=== PATIENT | female | born 1975 | race Caucasian/White ===

== ENCOUNTER 2024-02-27 01:47 | Outpatient (CLI) | payer MEDICAID, SELFPAY ==
[2024-02-27 08:49] LABS: Abs Immature Grans 0.02 10^3/uL (0.0-0.06); Absolute Basophil Count 0.04 10^3/uL (0.0-0.2); Absolute Eosinophil Count 0.06 10^3/uL (0.0-0.7); Absolute Lymphocyte Count 1.27 10^3/uL (1.2-3.4); Absolute Monocyte Count 0.43 10^3/uL (0.1-0.8); Basophils % 1.8 %; Eosinophils % 2.7 %; HCT 39.4 % (36.0-46.0); HGB 13.3 g/dL (11.2-15.7); Immature Grans % 0.9 %; Lymphocytes % 57.5 %; MCH 28.9 pg (27.0-33.0); MCHC 33.8 % (32.0-36.0); MCV 86 fL (80-95); MPV 9.6 fL (8.0-11.0); Monocytes % 19.5 %; Neutrophils % 17.6 %; Platelet Count 174 10^3/uL (130-400); RDW 13.2 % (11.7-14.6); RDW-SD 40.4 fL; WBC 2.21 10^3/uL (4.4-10.8)
[2024-02-27 09:28] LABS: ALT 32 U/L (14-59); AST 15 U/L (15-37); Albumin 3.8 g/dL (3.4-5.0); Alkaline Phosphatase 60 U/L (46-116); Anion Gap 8.8 mmol/L (3-11); BUN 6 mg/dL (7-18); CO2 29.2 mmol/L (21.0-32.0); CREATININE 0.8 mg/dL (0.55-1.02); Calcium 9.4 mg/dL (8.5-10.1); Chloride 106 mmol/L (98-107); Glucose 94 mg/dL (74-106); Potassium 3.4 mmol/L (3.5-5.1); Sodium 144 mmol/L (136-145); Total Protein 6.6 g/dL (6.4-8.2)
[2024-02-27 09:31] LABS: Diff Comment Diff Reviewed; RBC Morphology Normal
[2024-02-27 09:32] LABS: Absolute Neutrophil Count 0.39 10^3/uL (1.2-6.7)
[2024-02-27 21:07] LABS: CEA 1.3 ng/mL (See Note)
== END 2024-02-27 01:48 | disposition home or self-care (01) ==
LOC: LBO 01:47
PROVIDERS: Visit Provider Internal Medicine Hematology & Oncology
DX: C16.0 Malignant neoplasm of cardia (principal)
CPT/HCPCS: 36415; 80053; 82378; 85025

== ENCOUNTER 2024-03-06 00:03 | Outpatient (RCR) | payer MEDICAID, SELFPAY ==
[2024-03-05] MEDS: Normal Saline Flush 10 ML SYR IVP (08:28)
[2024-03-05 08:45] LABS: Abs Immature Grans 0.03 10^3/uL (0.0-0.06); Absolute Basophil Count 0.07 10^3/uL (0.0-0.2); Absolute Eosinophil Count 0.07 10^3/uL (0.0-0.7); Absolute Lymphocyte Count 1.53 10^3/uL (1.2-3.4); Absolute Monocyte Count 0.33 10^3/uL (0.1-0.8); Absolute Neutrophil Count 2.15 10^3/uL (1.2-6.7); Basophils % 1.7 %; Eosinophils % 1.7 %; HCT 37.6 % (36.0-46.0); HGB 12.5 g/dL (11.2-15.7); Immature Grans % 0.7 %; Lymphocytes % 36.6 %; MCH 29.1 pg (27.0-33.0); MCHC 33.2 % (32.0-36.0); MCV 88 fL (80-95); MPV 10.1 fL (8.0-11.0); Monocytes % 7.9 %; Neutrophils % 51.4 %; Platelet Count 219 10^3/uL (130-400); RBC 4.29 10^6/uL (3.93-5.22); RDW 13.8 % (11.7-14.6); RDW-SD 43.6 fL; WBC 4.18 10^3/uL (4.4-10.8)
[2024-03-05 09:02] LABS: ALT 26 U/L (14-59); AST 15 U/L (15-37); Albumin 3.6 g/dL (3.4-5.0); Alkaline Phosphatase 59 U/L (46-116); Anion Gap 6.7 mmol/L (3-11); BUN 6 mg/dL (7-18); Bilirubin, Total 0.33 mg/dL (0.2-1.0); CO2 27.3 mmol/L (21.0-32.0); CREATININE 0.7 mg/dL (0.55-1.02); Calcium 9.4 mg/dL (8.5-10.1); Chloride 107 mmol/L (98-107); Estimated GFR 107.28 (mL/min/1.73m2); Glucose 75 mg/dL (74-106); Potassium 3.8 mmol/L (3.5-5.1); Sodium 141 mmol/L (136-145); Total Protein 6.5 g/dL (6.4-8.2)
[2024-03-05 19:23] LABS: CEA 0.9 ng/mL (See Note)
[2024-03-06] MEDS: Normal Saline Flush 10 ML SYR IVP (16:00)
== END 2024-03-13 23:59 | disposition home or self-care (01) ==
LOC: INF 00:03
PROVIDERS: Visit Provider Internal Medicine Hematology & Oncology
DX: C16.0 Malignant neoplasm of cardia (principal); Z45.2 Encounter for adjustment and management of vascular access device
CPT/HCPCS: 36591; 80053; 96523; 82378; 85025

== ENCOUNTER 2024-04-03 16:17 | Outpatient (RCR) | payer MEDICAID, SELFPAY ==
[2024-03-19 08:19] LABS: Abs Immature Grans 1.04 10^3/uL (0.0-0.06); Absolute Basophil Count 0.11 10^3/uL (0.0-0.2); HCT 38.4 % (36.0-46.0); HGB 12.6 g/dL (11.2-15.7); MCH 28.7 pg (27.0-33.0); MCHC 32.8 % (32.0-36.0); MCV 88 fL (80-95); MPV 10.9 fL (8.0-11.0); Platelet Count 101 10^3/uL (130-400); RBC 4.39 10^6/uL (3.93-5.22); RDW 14.6 % (11.7-14.6); RDW-SD 45.8 fL
[2024-03-19 08:33] LABS: ALT 47 U/L (14-59); AST 24 U/L (15-37); Albumin 3.6 g/dL (3.4-5.0); Alkaline Phosphatase 106 U/L (46-116); Anion Gap 5.7 mmol/L (3-11); BUN 7 mg/dL (7-18); Bilirubin, Total 0.29 mg/dL (0.2-1.0); CO2 28.3 mmol/L (21.0-32.0); CREATININE 0.7 mg/dL (0.55-1.02); Calcium 9.5 mg/dL (8.5-10.1); Chloride 107 mmol/L (98-107); Estimated GFR 107.28 (mL/min/1.73m2); Glucose 89 mg/dL (74-106); Potassium 3.7 mmol/L (3.5-5.1); Sodium 141 mmol/L (136-145); Total Protein 6.6 g/dL (6.4-8.2)
[2024-03-19 08:40] LABS: Absolute Eosinophil Count 0.11 10^3/uL (0.0-0.7); Absolute Lymphocyte Count 1.31 10^3/uL (1.2-3.4); Absolute Monocyte Count 0.65 10^3/uL (0.1-0.8); Absolute Neutrophil Count 8.28 10^3/uL (1.2-6.7); Metamyelocytes % 3; Myelocytes % 1
[2024-03-19 08:41] LABS: Diff Comment Manual Differential; RBC Morphology Normal
[2024-03-19] MEDS: Normal Saline Flush 10 ML SYR IVP (13:10)
[2024-03-19 18:31] LABS: CEA 1.2 ng/mL (See Note)
[2024-03-20] MEDS: Normal Saline Flush 10 ML SYR IVP (13:28)
[2024-04-02 09:10] LABS: Abs Immature Grans 1.62 10^3/uL (0.0-0.06); HCT 37.2 % (36.0-46.0); HGB 12.5 g/dL (11.2-15.7); MCH 29.5 pg (27.0-33.0); MCHC 33.6 % (32.0-36.0); MCV 88 fL (80-95); MPV 11.3 fL (8.0-11.0); RBC 4.24 10^6/uL (3.93-5.22); RDW 16.5 % (11.7-14.6); RDW-SD 51.8 fL; WBC 14.43 10^3/uL (4.4-10.8)
[2024-04-02] MEDS: Normal Saline Flush 10 ML SYR IVP (09:16)
[2024-04-02 09:29] LABS: ALT 180 U/L (14-59); AST 90 U/L (15-37); Albumin 3.5 g/dL (3.4-5.0); Alkaline Phosphatase 137 U/L (46-116); Anion Gap 6.3 mmol/L (3-11); BUN 8 mg/dL (7-18); CO2 28.7 mmol/L (21.0-32.0); CREATININE 0.7 mg/dL (0.55-1.02); Calcium 9.2 mg/dL (8.5-10.1); Chloride 107 mmol/L (98-107); Estimated GFR 107.28 (mL/min/1.73m2); Glucose 90 mg/dL (74-106); Sodium 142 mmol/L (136-145); Total Protein 6.6 g/dL (6.4-8.2)
[2024-04-02 09:44] LABS: Platelet Count 99 10^3/uL (130-400)
[2024-04-02 09:45] LABS: Absolute Basophil Count 0.29 10^3/uL (0.0-0.2); Absolute Eosinophil Count 0.14 10^3/uL (0.0-0.7); Absolute Lymphocyte Count 1.73 10^3/uL (1.2-3.4); Absolute Monocyte Count 1.01 10^3/uL (0.1-0.8); Absolute Neutrophil Count 10.97 10^3/uL (1.2-6.7); Bands % 7 %; Diff Comment Manual Differential; Metamyelocytes % 2; RBC Morphology Normal
[2024-04-02 18:22] LABS: CEA 1.4 ng/mL (See Note)
== END 2024-04-12 23:59 | disposition home or self-care (01) ==
LOC: INF 16:17
PROVIDERS: Visit Provider Internal Medicine Hematology & Oncology
DX: C16.0 Malignant neoplasm of cardia (principal)
CPT/HCPCS: 36591; 80053; 82378; 85025

== ENCOUNTER 2024-04-23 01:30 | Outpatient (RCR) | payer MEDICAID, SELFPAY ==
[2024-04-23 09:20] LABS: Abs Immature Grans 0.26 10^3/uL (0.0-0.06); Absolute Basophil Count 0.06 10^3/uL (0.0-0.2); Absolute Eosinophil Count 0.01 10^3/uL (0.0-0.7); Absolute Lymphocyte Count 1.67 10^3/uL (1.2-3.4); Absolute Monocyte Count 0.39 10^3/uL (0.1-0.8); Absolute Neutrophil Count 4.78 10^3/uL (1.2-6.7); Basophils % 0.8 %; Eosinophils % 0.1 %; HCT 37.1 % (36.0-46.0); HGB 11.7 g/dL (11.2-15.7); Immature Grans % 3.6 %; Lymphocytes % 23.3 %; MCH 29.6 pg (27.0-33.0); MCHC 31.5 % (32.0-36.0); MCV 94 fL (80-95); Monocytes % 5.4 %; Neutrophils % 66.8 %; Platelet Count 151 10^3/uL (130-400); RBC 3.95 10^6/uL (3.93-5.22); RDW 16.9 % (11.7-14.6); RDW-SD 58.4 fL; WBC 7.17 10^3/uL (4.4-10.8)
[2024-04-23] MEDS: Normal Saline Flush 10 ML SYR IVP (09:27)
[2024-04-23 09:36] LABS: ALT 103 U/L (14-59); AST 49 U/L (15-37); Albumin 3.3 g/dL (3.4-5.0); Alkaline Phosphatase 95 U/L (46-116); Anion Gap 7.5 mmol/L (3-11); BUN 12 mg/dL (7-18); Bilirubin, Total 0.34 mg/dL (0.2-1.0); CO2 26.5 mmol/L (21.0-32.0); CREATININE 0.7 mg/dL (0.55-1.02); Calcium 9.1 mg/dL (8.5-10.1); Chloride 111 mmol/L (98-107); Estimated GFR 107.28 (mL/min/1.73m2); Glucose 81 mg/dL (74-106); Sodium 145 mmol/L (136-145); Total Protein 6.3 g/dL (6.4-8.2)
[2024-04-23 18:14] LABS: CEA 0.6 ng/mL (See Note)
== END 2024-05-13 23:59 | disposition home or self-care (01) ==
LOC: INF 01:30
PROVIDERS: Visit Provider Internal Medicine Hematology & Oncology
DX: C16.0 Malignant neoplasm of cardia (principal); Z45.2 Encounter for adjustment and management of vascular access device
CPT/HCPCS: 36591; 80053; 82378; 85025

== ENCOUNTER 2024-07-08 00:19 | Outpatient (RCR) | payer OTHER, SELFPAY ==
[2024-07-08] MEDS: Normal Saline Flush 10 ML SYR IVP (09:36)
[2024-07-08 10:05] LABS: Abs Immature Grans 0.02 10^3/uL (0.0-0.06); Absolute Basophil Count 0.03 10^3/uL (0.0-0.2); Absolute Lymphocyte Count 1.33 10^3/uL (1.2-3.4); Absolute Monocyte Count 0.31 10^3/uL (0.1-0.8); Absolute Neutrophil Count 5.06 10^3/uL (1.2-6.7); Basophils % 0.4 %; Eosinophils % 1.5 %; HCT 38.9 % (36.0-46.0); HGB 12.6 g/dL (11.2-15.7); Immature Grans % 0.3 %; Lymphocytes % 19.4 %; MCH 28.3 pg (27.0-33.0); MCHC 32.4 % (32.0-36.0); MCV 87 fL (80-95); MPV 10.6 fL (8.0-11.0); Monocytes % 4.5 %; Neutrophils % 73.9 %; Platelet Count 195 10^3/uL (130-400); RBC 4.45 10^6/uL (3.93-5.22); RDW 13.2 % (11.7-14.6); RDW-SD 42.6 fL; WBC 6.85 10^3/uL (4.4-10.8)
[2024-07-08 10:28] LABS: ALT 31 U/L (14-59); AST 18 U/L (15-37); Albumin 3.5 g/dL (3.4-5.0); Alkaline Phosphatase 89 U/L (46-116); Anion Gap 10.8 mmol/L (3-11); BUN 11 mg/dL (7-18); Bilirubin, Total 0.39 mg/dL (0.2-1.0); CO2 26.2 mmol/L (21.0-32.0); CREATININE 0.5 mg/dL (0.55-1.02); Calcium 9.5 mg/dL (8.5-10.1); Chloride 107 mmol/L (98-107); Estimated GFR 115.62 (mL/min/1.73m2); Glucose 94 mg/dL (74-106); Potassium 3.8 mmol/L (3.5-5.1); Sodium 144 mmol/L (136-145); Total Protein 6.7 g/dL (6.4-8.2)
[2024-07-08 18:24] LABS: CEA 0.8 ng/mL (See Note)
== END 2024-07-13 23:59 | disposition home or self-care (01) ==
LOC: INF 00:19
PROVIDERS: Visit Provider Internal Medicine Hematology & Oncology
DX: C16.0 Malignant neoplasm of cardia (principal); Z45.2 Encounter for adjustment and management of vascular access device
CPT/HCPCS: 36591; 80053; 82378; 85025

== ENCOUNTER 2024-08-05 03:37 | Outpatient (RCR) | payer OTHER, SELFPAY ==
[2024-07-22] MEDS: Normal Saline Flush 10 ML SYR IVP (08:04)
[2024-07-22 08:26] LABS: Abs Immature Grans 0.02 10^3/uL (0.0-0.06); Absolute Basophil Count 0.02 10^3/uL (0.0-0.2); Absolute Eosinophil Count 0.01 10^3/uL (0.0-0.7); Absolute Lymphocyte Count 0.79 10^3/uL (1.2-3.4); Absolute Monocyte Count 0.34 10^3/uL (0.1-0.8); Absolute Neutrophil Count 5.78 10^3/uL (1.2-6.7); Basophils % 0.3 %; Eosinophils % 0.1 %; HCT 37.2 % (36.0-46.0); HGB 12.1 g/dL (11.2-15.7); Immature Grans % 0.3 %; Lymphocytes % 11.4 %; MCH 27.8 pg (27.0-33.0); MCHC 32.5 % (32.0-36.0); MCV 86 fL (80-95); MPV 10.6 fL (8.0-11.0); Monocytes % 4.9 %; Platelet Count 201 10^3/uL (130-400); RBC 4.35 10^6/uL (3.93-5.22); RDW 13.8 % (11.7-14.6); RDW-SD 43.1 fL; WBC 6.96 10^3/uL (4.4-10.8)
[2024-07-22 08:43] LABS: ALT 25 U/L (14-59); AST 14 U/L (15-37); Alkaline Phosphatase 88 U/L (46-116); BUN 9 mg/dL (7-18); Bilirubin, Total 0.86 mg/dL (0.2-1.0); CREATININE 0.6 mg/dL (0.55-1.02); Calcium 9.6 mg/dL (8.5-10.1); Chloride 104 mmol/L (98-107); Estimated GFR 110.65 (mL/min/1.73m2); Glucose 113 mg/dL (74-106); Potassium 3.7 mmol/L (3.5-5.1); Sodium 140 mmol/L (136-145); Total Protein 6.9 g/dL (6.4-8.2)
[2024-08-05] MEDS: Normal Saline Flush 10 ML SYR IVP (08:20)
[2024-08-05 08:45] LABS: Absolute Lymphocyte Count 1.54 10^3/uL (1.2-3.4); Absolute Monocyte Count 0.53 10^3/uL (0.1-0.8); Basophils % 0.8 %; Eosinophils % 0.3 %; HCT 35.4 % (36.0-46.0); HGB 11.4 g/dL (11.2-15.7); Immature Grans % 5.8 %; Lymphocytes % 12.9 %; MCH 27.7 pg (27.0-33.0); MCHC 32.2 % (32.0-36.0); MCV 86 fL (80-95); MPV 10.8 fL (8.0-11.0); Monocytes % 4.4 %; Neutrophils % 75.8 %; Platelet Count 123 10^3/uL (130-400); RBC 4.11 10^6/uL (3.93-5.22); RDW 14.6 % (11.7-14.6); RDW-SD 46.2 fL; WBC 11.97 10^3/uL (4.4-10.8)
[2024-08-05 08:46] LABS: Absolute Eosinophil Count 0.04 10^3/uL (0.0-0.7); Absolute Neutrophil Count 9.07 10^3/uL (1.2-6.7)
[2024-08-05 09:02] LABS: Diff Comment Agrees w/ Instrument
[2024-08-05 09:04] LABS: ALT 37 U/L (14-59); AST 18 U/L (15-37); Albumin 3.3 g/dL (3.4-5.0); Alkaline Phosphatase 122 U/L (46-116); Anion Gap 9.7 mmol/L (3-11); BUN 10 mg/dL (7-18); Bilirubin, Total 0.29 mg/dL (0.2-1.0); CO2 27.3 mmol/L (21.0-32.0); CREATININE 0.6 mg/dL (0.55-1.02); Calcium 9.7 mg/dL (8.5-10.1); Chloride 106 mmol/L (98-107); Estimated GFR 110.65 (mL/min/1.73m2); Glucose 95 mg/dL (74-106); Potassium 3.8 mmol/L (3.5-5.1); Sodium 143 mmol/L (136-145)
[2024-08-05 19:01] LABS: CEA <0.5 ng/mL (See Note)
== END 2024-08-13 23:59 | disposition home or self-care (01) ==
LOC: INF 03:37
PROVIDERS: Visit Provider Internal Medicine Hematology & Oncology
DX: C16.0 Malignant neoplasm of cardia (principal)
CPT/HCPCS: 36591; 80053; 82378; 85025

== ENCOUNTER 2024-09-09 02:40 | Outpatient (RCR) | payer OTHER, SELFPAY ==
[2024-08-19] MEDS: Normal Saline Flush 10 ML SYR IVP (09:51)
[2024-08-19 10:01] LABS: Abs Immature Grans 1.16 10^3/uL (0.0-0.06); HCT 34.6 % (36.0-46.0); HGB 11.2 g/dL (11.2-15.7); MCH 27.7 pg (27.0-33.0); MCHC 32.4 % (32.0-36.0); MCV 85 fL (80-95); MPV 10.7 fL (8.0-11.0); RBC 4.05 10^6/uL (3.93-5.22); RDW 16.2 % (11.7-14.6); RDW-SD 49.4 fL; WBC 14.88 10^3/uL (4.4-10.8)
[2024-08-19 10:17] LABS: ALT 35 U/L (14-59); AST 17 U/L (15-37); Albumin 3.4 g/dL (3.4-5.0); Alkaline Phosphatase 134 U/L (46-116); Anion Gap 9.1 mmol/L (3-11); BUN 7 mg/dL (7-18); Bilirubin, Total 0.37 mg/dL (0.2-1.0); CO2 27.9 mmol/L (21.0-32.0); CREATININE 0.5 mg/dL (0.55-1.02); Calcium 9.2 mg/dL (8.5-10.1); Chloride 105 mmol/L (98-107); Estimated GFR 115.62 (mL/min/1.73m2); Glucose 79 mg/dL (74-106); Potassium 3.6 mmol/L (3.5-5.1); Sodium 142 mmol/L (136-145); Total Protein 6.8 g/dL (6.4-8.2)
[2024-08-19 10:21] LABS: Absolute Lymphocyte Count 1.04 10^3/uL (1.2-3.4); Absolute Monocyte Count 0.89 10^3/uL (0.1-0.8); Absolute Neutrophil Count 12.95 10^3/uL (1.2-6.7)
[2024-08-19 10:22] LABS: Diff Comment Manual Differential; Metamyelocytes % 2; Myelocytes % 2; Platelet Count 85 10^3/uL (130-400); RBC Morphology Normal
[2024-08-20 09:34] LABS: CEA <0.5 ng/mL (See Note)
[2024-08-26] MEDS: Normal Saline Flush 10 ML SYR IVP (09:56)
[2024-08-26 10:04] LABS: Abs Immature Grans 0.09 10^3/uL (0.0-0.06); Absolute Basophil Count 0.03 10^3/uL (0.0-0.2); Absolute Eosinophil Count 0.02 10^3/uL (0.0-0.7); Absolute Lymphocyte Count 1.39 10^3/uL (1.2-3.4); Absolute Monocyte Count 0.34 10^3/uL (0.1-0.8); Absolute Neutrophil Count 5.32 10^3/uL (1.2-6.7); Basophils % 0.4 %; Eosinophils % 0.3 %; HCT 35.1 % (36.0-46.0); HGB 11.3 g/dL (11.2-15.7); Immature Grans % 1.3 %; Lymphocytes % 19.3 %; MCH 27.8 pg (27.0-33.0); MCHC 32.2 % (32.0-36.0); MCV 86 fL (80-95); MPV 10.6 fL (8.0-11.0); Monocytes % 4.7 %; Platelet Count 171 10^3/uL (130-400); RBC 4.07 10^6/uL (3.93-5.22); RDW 16.6 % (11.7-14.6); RDW-SD 51.6 fL; WBC 7.19 10^3/uL (4.4-10.8)
[2024-08-26 11:25] LABS: ALT 43 U/L (14-59); AST 23 U/L (15-37); Albumin 3.6 g/dL (3.4-5.0); Alkaline Phosphatase 99 U/L (46-116); Anion Gap 7.9 mmol/L (3-11); BUN 11 mg/dL (7-18); Bilirubin, Total 0.42 mg/dL (0.2-1.0); CO2 27.1 mmol/L (21.0-32.0); CREATININE 0.5 mg/dL (0.55-1.02); Calcium 9.4 mg/dL (8.5-10.1); Chloride 109 mmol/L (98-107); Estimated GFR 115.62 (mL/min/1.73m2); Glucose 86 mg/dL (74-106); Potassium 3.7 mmol/L (3.5-5.1); Sodium 144 mmol/L (136-145); Total Protein 6.8 g/dL (6.4-8.2)
[2024-08-26 22:02] LABS: CEA <0.5 ng/mL (See Note)
[2024-09-09] MEDS: Normal Saline Flush 10 ML SYR IVP (08:16)
[2024-09-09 08:30] LABS: HCT 35.6 % (36.0-46.0); HGB 11.5 g/dL (11.2-15.7); MCH 28.6 pg (27.0-33.0); MCHC 32.3 % (32.0-36.0); MCV 89 fL (80-95); MPV 11.2 fL (8.0-11.0); RBC 4.02 10^6/uL (3.93-5.22); RDW 19.2 % (11.7-14.6); RDW-SD 60.7 fL; WBC 13.98 10^3/uL (4.4-10.8)
[2024-09-09 08:45] LABS: ALT 74 U/L (14-59); AST 41 U/L (15-37); Albumin 3.7 g/dL (3.4-5.0); Alkaline Phosphatase 160 U/L (46-116); Anion Gap 7.9 mmol/L (3-11); BUN 7 mg/dL (7-18); Bilirubin, Total 0.44 mg/dL (0.2-1.0); CO2 27.1 mmol/L (21.0-32.0); CREATININE 0.5 mg/dL (0.55-1.02); Calcium 9.5 mg/dL (8.5-10.1); Chloride 106 mmol/L (98-107); Estimated GFR 115.62 (mL/min/1.73m2); Glucose 100 mg/dL (74-106); Potassium 4.2 mmol/L (3.5-5.1); Sodium 141 mmol/L (136-145); Total Protein 6.8 g/dL (6.4-8.2)
[2024-09-09 08:56] LABS: Absolute Lymphocyte Count 1.68 10^3/uL (1.2-3.4); Absolute Monocyte Count 1.26 10^3/uL (0.1-0.8); Absolute Neutrophil Count 11.04 10^3/uL (1.2-6.7); Atypical Lymphocytes % 1 %; Bands % 6 %
[2024-09-09 08:57] LABS: Diff Comment Manual Differential; Metamyelocytes % 0; Myelocytes % 0; Platelet Count 93 10^3/uL (130-400); Promyelocytes % 0; RBC Morphology Normal
== END 2024-09-10 23:59 | disposition home or self-care (01) ==
LOC: INF 02:40
PROVIDERS: Visit Provider Internal Medicine Hematology & Oncology
DX: C16.0 Malignant neoplasm of cardia (principal)
CPT/HCPCS: 36591; 80053; 82378; 85025

== ENCOUNTER 2024-09-30 01:27 | Outpatient (RCR) | payer OTHER, SELFPAY ==
[2024-09-30 10:13] LABS: Abs Immature Grans 0.09 10^3/uL (0.0-0.06); Absolute Basophil Count 0.05 10^3/uL (0.0-0.2); Absolute Eosinophil Count 0.01 10^3/uL (0.0-0.7); Absolute Lymphocyte Count 1.23 10^3/uL (1.2-3.4); Absolute Monocyte Count 0.55 10^3/uL (0.1-0.8); Absolute Neutrophil Count 7.19 10^3/uL (1.2-6.7); Basophils % 0.5 %; Eosinophils % 0.1 %; HGB 12.3 g/dL (11.2-15.7); Lymphocytes % 13.5 %; MCH 29.1 pg (27.0-33.0); MCHC 31.5 % (32.0-36.0); MCV 92 fL (80-95); MPV 10.5 fL (8.0-11.0); Neutrophils % 78.9 %; Platelet Count 116 10^3/uL (130-400); RBC 4.22 10^6/uL (3.93-5.22); RDW 17.9 % (11.7-14.6); RDW-SD 61.4 fL; WBC 9.12 10^3/uL (4.4-10.8)
[2024-09-30] MEDS: Normal Saline Flush 10 ML SYR IVP (10:15)
[2024-09-30 10:46] LABS: ALT 84 U/L (14-59); AST 53 U/L (15-37); Albumin 3.8 g/dL (3.4-5.0); Alkaline Phosphatase 132 U/L (46-116); Anion Gap 7.6 mmol/L (3-11); BUN 11 mg/dL (7-18); Bilirubin, Total 0.4 mg/dL (0.2-1.0); CO2 29.4 mmol/L (21.0-32.0); CREATININE 0.6 mg/dL (0.55-1.02); Calcium 9.6 mg/dL (8.5-10.1); Chloride 106 mmol/L (98-107); Estimated GFR 110.65 (mL/min/1.73m2); Glucose 89 mg/dL (74-106); Potassium 4.2 mmol/L (3.5-5.1); Sodium 143 mmol/L (136-145)
[2024-09-30 18:54] LABS: CEA <0.5 ng/mL (See Note)
== END 2024-10-11 23:59 | disposition home or self-care (01) ==
LOC: INF 01:27
PROVIDERS: Visit Provider Internal Medicine Hematology & Oncology
DX: C16.0 Malignant neoplasm of cardia (principal)
CPT/HCPCS: 36591; 80053; 82378; 85025

== ENCOUNTER 2024-10-27 02:03 | Outpatient (RCR) | payer OTHER, SELFPAY ==
[2024-10-14 11:05] LABS: Abs Immature Grans 0.03 10^3/uL (0.0-0.06); Absolute Basophil Count 0.05 10^3/uL (0.0-0.2); Absolute Eosinophil Count 0.06 10^3/uL (0.0-0.7); Absolute Lymphocyte Count 1.03 10^3/uL (1.2-3.4); Absolute Monocyte Count 0.25 10^3/uL (0.1-0.8); Absolute Neutrophil Count 3.77 10^3/uL (1.2-6.7); Eosinophils % 1.2 %; HCT 38.4 % (36.0-46.0); HGB 12.5 g/dL (11.2-15.7); Immature Grans % 0.6 %; Lymphocytes % 19.8 %; MCH 29.8 pg (27.0-33.0); MCHC 32.6 % (32.0-36.0); MCV 92 fL (80-95); MPV 11.3 fL (8.0-11.0); Monocytes % 4.8 %; Neutrophils % 72.6 %; Platelet Count 142 10^3/uL (130-400); RBC 4.19 10^6/uL (3.93-5.22); RDW 15.2 % (11.7-14.6); WBC 5.19 10^3/uL (4.4-10.8)
[2024-10-14] MEDS: Normal Saline Flush 10 ML SYR IVP (11:07)
[2024-10-14 11:22] LABS: ALT 106 U/L (14-59); AST 59 U/L (15-37); Albumin 3.8 g/dL (3.4-5.0); Alkaline Phosphatase 121 U/L (46-116); BUN 10 mg/dL (7-18); Bilirubin, Total 0.4 mg/dL (0.2-1.0); CREATININE 0.6 mg/dL (0.55-1.02); Calcium 9.6 mg/dL (8.5-10.1); Chloride 108 mmol/L (98-107); Estimated GFR 110.65 (mL/min/1.73m2); Glucose 66 mg/dL (74-106); Potassium 4.2 mmol/L (3.5-5.1); Sodium 146 mmol/L (136-145); Total Protein 6.9 g/dL (6.4-8.2)
[2024-10-15 12:08] LABS: Vitamin B12 > 2000 pg/mL (193-986)
[2024-10-27] MEDS: Normal Saline Flush 10 ML SYR IVP (12:12)
[2024-10-27 12:31] LABS: ALT 114 U/L (14-59); AST 53 U/L (15-37); Albumin 3.9 g/dL (3.4-5.0); Alkaline Phosphatase 131 U/L (46-116); Anion Gap 8.6 mmol/L (3-11); BUN 12 mg/dL (7-18); Bilirubin, Total 0.3 mg/dL (0.2-1.0); CO2 28.4 mmol/L (21.0-32.0); CREATININE 0.6 mg/dL (0.55-1.02); Calcium 9.3 mg/dL (8.5-10.1); Chloride 106 mmol/L (98-107); Estimated GFR 110.65 (mL/min/1.73m2); Glucose 67 mg/dL (74-106); Potassium 4.1 mmol/L (3.5-5.1); Sodium 143 mmol/L (136-145); Total Protein 6.9 g/dL (6.4-8.2)
[2024-10-28 15:03] LABS: Vitamin D 25 Total 52 ng/mL (30-100)
== END 2024-11-10 23:59 | disposition home or self-care (01) ==
LOC: INF 02:03
PROVIDERS: Nurse Practitioner Family; Visit Provider Internal Medicine Hematology & Oncology
DX: C16.0 Malignant neoplasm of cardia (principal); K14.0 Glossitis; Z98.0 Intestinal bypass and anastomosis status; Z90.3 Acquired absence of stomach [part of]
CPT/HCPCS: 36591; 80053; 82306; 82378; 82607; 85025

== ENCOUNTER 2025-01-25 03:29 | Outpatient (RCR) | payer OTHER, SELFPAY ==
[2025-01-25 10:56] LABS: Abs Immature Grans 0.01 10^3/uL (0.0-0.06); HCT 35.8 % (36.0-46.0); HGB 11.9 g/dL (11.2-15.7); Immature Grans % 0.3 %; MCH 29.3 pg (27.0-33.0); MCHC 33.2 % (32.0-36.0); MCV 88 fL (80-95); MPV 10.4 fL (8.0-11.0); Platelet Count 153 10^3/uL (130-400); RBC 4.06 10^6/uL (3.93-5.22); RDW 13.3 % (11.7-14.6); RDW-SD 43.5 fL; WBC 3.13 10^3/uL (4.4-10.8)
[2025-01-25 11:11] LABS: ALT 80 U/L (14-59); AST 38 U/L (15-37); Albumin 3.8 g/dL (3.4-5.0); Alkaline Phosphatase 129 U/L (46-116); Anion Gap 9.0 mmol/L (3-11); BUN 12 mg/dL (7-18); Bilirubin, Total 0.5 mg/dL (0.2-1.0); CO2 28.0 mmol/L (21.0-32.0); Calcium 9.4 mg/dL (8.5-10.1); Chloride 108 mmol/L (98-107); Estimated GFR 115.62 (mL/min/1.73m2); Glucose 85 mg/dL (74-106); Potassium 4.0 mmol/L (3.5-5.1); Sodium 145 mmol/L (136-145); Total Protein 6.8 g/dL (6.4-8.2)
[2025-01-25 11:24] LABS: Folate > 20.0 ng/mL (8.6-20.0)
[2025-01-25] MEDS: Normal Saline Flush 10 ML SYR IVP (11:34)
[2025-01-28 10:51] LABS: Thiamine (Vitamin B1), WB 117 nmol/L (70-180)
[2025-01-31 16:55] LABS: Vitamin E, Serum 9.6 mg/L (5.5 - 17.0)
[2025-01-31 20:53] LABS: Free Retinol (Vitamin A) 46.0 mcg/dL (32.5-78.0)
== END 2025-02-10 23:59 | disposition home or self-care (01) ==
LOC: INF 03:29
PROVIDERS: Nurse Practitioner Family; Visit Provider Internal Medicine Hematology & Oncology
DX: Z90.3 Acquired absence of stomach [part of] (principal); Z98.0 Intestinal bypass and anastomosis status; C16.0 Malignant neoplasm of cardia; Z45.2 Encounter for adjustment and management of vascular access device
CPT/HCPCS: 36591; 80053; 82746; 84425; 84446; 84590; 85025

== ENCOUNTER 2025-04-21 00:40 | Outpatient (RCR) | payer OTHER, SELFPAY ==
[2025-04-21] MEDS: Normal Saline Flush 10 ML SYR IVP (11:05)
[2025-04-21 11:08] LABS: Abs Immature Grans 0.01 10^3/uL (0.0-0.06); HCT 38.6 % (36.0-46.0); HGB 12.8 g/dL (11.2-15.7); Immature Grans % 0.3 %; MCH 29.1 pg (27.0-33.0); MCHC 33.2 % (32.0-36.0); MCV 88 fL (80-95); MPV 10.5 fL (8.0-11.0); Platelet Count 141 10^3/uL (130-400); RBC 4.40 10^6/uL (3.93-5.22); RDW 12.1 % (11.7-14.6); RDW-SD 39.5 fL; WBC 3.52 10^3/uL (4.4-10.8)
[2025-04-21 11:25] LABS: ALT 62 U/L (14-59); AST 26 U/L (15-37); Albumin 3.9 g/dL (3.4-5.0); Alkaline Phosphatase 138 U/L (46-116); Anion Gap 9.1 mmol/L (3-11); BUN 10 mg/dL (7-18); Bilirubin, Total 0.4 mg/dL (0.2-1.0); CO2 28.9 mmol/L (21.0-32.0); Calcium 9.1 mg/dL (8.5-10.1); Chloride 106 mmol/L (98-107); Glucose 104 mg/dL (74-106); Potassium 4.0 mmol/L (3.5-5.1); Sodium 144 mmol/L (136-145); Total Protein 6.8 g/dL (6.4-8.2)
[2025-04-21 19:34] LABS: CEA 1.1 ng/mL (See Note)
== END 2025-05-13 23:59 | disposition home or self-care (01) ==
LOC: INF 00:40
PROVIDERS: Visit Provider Internal Medicine Hematology & Oncology
DX: Z45.2 Encounter for adjustment and management of vascular access device (principal); C16.0 Malignant neoplasm of cardia
CPT/HCPCS: 36591; 80053; 82378; 85025

== ENCOUNTER 2025-07-05 07:17 | Outpatient (CLI) | payer OTHER, SELFPAY ==
[2025-07-05 15:51] LABS: Abs Immature Grans 0.01 10^3/uL (0.0-0.06); HCT 39.3 % (36.0-46.0); HGB 12.8 g/dL (11.2-15.7); Immature Grans % 0.2 %; MCH 28.8 pg (27.0-33.0); MCHC 32.6 % (32.0-36.0); MCV 89 fL (80-95); MPV 10.1 fL (8.0-11.0); Platelet Count 175 10^3/uL (130-400); RBC 4.44 10^6/uL (3.93-5.22); RDW 12.4 % (11.7-14.6); RDW-SD 40.0 fL; WBC 4.87 10^3/uL (4.4-10.8)
[2025-07-05 16:47] LABS: ALT 54 U/L (10-49); AST 45 U/L (<34); Albumin 4.6 g/dL (3.2-5.0); Alkaline Phosphatase 132 U/L (46-116); Anion Gap 11 mmol/L (3-11); BUN 11 mg/dL (9-23); Bilirubin, Total 0.3 mg/dL (0.2-1.2); CO2 25.0 mmol/L (20.0-31.0); Calcium 9.4 mg/dL (8.3-10.6); Chloride 107 mmol/L (98-107); Glucose 84 mg/dL (74-106); Potassium 3.8 mmol/L (3.5-5.1); Sodium 143 mmol/L (136-145); Total Protein 7.0 g/dL (5.7-8.2)
[2025-07-05 22:49] LABS: CEA 2.9 ng/mL (See Note)
== END 2025-07-05 07:18 | disposition home or self-care (01) ==
LOC: LBO 07:17
PROVIDERS: Visit Provider Internal Medicine Hematology & Oncology
DX: C16.0 Malignant neoplasm of cardia (principal)
CPT/HCPCS: 36415; 80053; 82378; 85025